=== PATIENT | female | born 1935 | race Caucasian/White ===

== ENCOUNTER → 2018-06-16 | Outpatient (CLI) | payer OTHER, MEDICARE ==
[~2018-06-16] MED LIST: ADVIL100 M2 PO; CALCIUM OYSTER500 MG PO; FISH OIL 1,0001 EAC5 PO; GLUCOSAMINE &1 EACH PO; MULTIVITAMINS PO; SYNTHROID125 MCG PO
== END ==
LOC: RAD 15:12
DX: Z12.31 Encounter for screening mammogram for malignant neoplasm of breast (principal)

== ENCOUNTER 2019-10-31 12:47 | Inpatient (IN) | payer OTHER, MEDICARE ==
[~2019-10-31] VITALS: Ht 162.6 cm; Wt 88.5 kg
--- NOTE | ~2019-10-31 | H ---
[facility] [place] [address] HISTORY AND PHYSICAL Name: GURPREET AMAYA Room #: 456-P [facility] M.R.#: [id number] Admission: 10/31/19 Attend Phys: Toribio Hazel MD Discharge: Date of : 37 Report #: [id number] THIS REPORT FOR: cc: Amandeep Gil MD, Rene P. MD Chu, Peter Y. MD ~ CC: Toribio Gil DATE OF SERVICE: 10/31/2019 REASON FOR ADMISSION: Obstructive jaundice. HISTORY OF PRESENT ILLNESS: I received a call from Dr. Gil that the patient was being sent to Radiology for evaluation of possible gallbladder disease. The patient has been complaining of being yellow for less than a week. She has mild abdominal discomfort. The patient's ultrasound showed dilated ductal system and also distended gallbladder. Pancreas was not visualized very well on ultrasound. The patient had a CT scan performed and the CT does show a dilated ductal system including pancreatic duct and irregularity in the head of the pancreas suggestion of a mass effect. The patient did have a history of a complicated appendicitis in 07/2018. A hypodense area was seen in the pancreas in several CTs were done including one in February, which showed stability. The radiologist was certain that this was benign, did not recommend any further imaging. The patient now presents with picture of obstructive jaundice and abnormal appearance to the head of the pancreas. The patient is being admitted for treatment of jaundice. ERCP is requested from GI and probable stent, hopefully that can be accomplished. PAST MEDICAL HISTORY: She has a history of hypothyroid, thyroid cancer, appendicitis, cataract, neuropathy. PAST SURGICAL HISTORY: Cataract surgery, carpal tunnel surgery, appendectomy complicated with an abscess. SOCIAL HISTORY: Retired nurse. She does not smoke or drink. FAMILY HISTORY: Significant family history of strokes and cerebral aneurysms. Her dad lived to . Not really very many cancer in the family. REVIEW OF SYSTEMS: Minimal abdominal discomfort. No nausea or vomiting. No shortness of breath, chest pain, or palpitation. PHYSICAL EXAMINATION: GENERAL: The patient is a very pleasant 84-year-old. She does not appear to be in acute distress. The patient is overtly jaundiced. [address] [address] HISTORY AND PHYSICAL Name: GURPREET AMAYA Room #: 456-P [facility] M..#: [id number] Admission: 10/31/19 Attend Phys: Toribio Hazel MD Discharge: Date of : 37 Report #: [id number] HEENT: Pupils are reactive. NECK: Soft and supple, no masses. LUNGS: Clear. HEART: Regular rate and rhythm. No murmur or gallop. ABDOMEN: She is soft and minimal tenderness in the right upper quadrant. No mass palpated. No ascites. EXTREMITIES: No cyanosis, clubbing or edema. LABORATORY DATA: The patient does have markedly elevated bilirubin of 9. AST is 410, ALT is 1064, alkaline phosphatase 374. Her lipase is elevated at 1609. Amylase is also 194. Protein and albumin is normal. Normal white count, normal PT/PTT. Hemoglobin is 12.8. Pending CEA and CA 19-9. IMPRESSION: The patient is an 84-year-old who is very pleasant. She did have an abnormal pancreas with a hypodense area, this was identified last year. Serial CT shows stability. The radiologist on the last CT did not recommend any further followup. Unfortunately, this may be the source of her obstructive jaundice. There is an irregularity in the pancreatic head. The patient has dilated biliary system, obstructed biliary system. The patient will need to be temporized with endoscopic retrograde cholangiopancreatography and stent. This will prevent infection from sitting in. I did discuss with her that she may need to go to [facility] for EUS biopsy. If does hand turner to be pancreatic cancer, I recommend Dr. Hugh Argueta for evaluation. The patient may need preoperative chemotherapy and a Whipple procedure. Hopefully, there was no liver mass identified currently. Hopefully, her tumor is localized and can be resected. The patient understands all this. She is to work in the OR and has assisted on Whipple's in the past. By: [id number] Toribio Hazel MD /nt
[2019-10-31 12:47] VITALS: BP 135/63
[~2019-10-31 12:47] MED LIST changes: -LEVOXYL112 MCG PO
[2019-10-31 14:12] LABS: ABSOLUTE NEUTROPHILS 2.8 thou/uL (1.4-8.2); BASOPHILS 0.8 % (0.0-2.0); EOSINOPHILS 1.8 % (0.0-3.0); HEMATOCRIT 38.1 % (37.0-47.0); HEMOGLOBIN 12.8 gm/dL (12.0-15.0); LYMPHOCYTES 28.9 % (24.0-44.0); MCH 30.1 pg (26.0-34.0); MCHC 33.5 g/dL (28.0-37.0); MCV 89.9 fL (80.0-100.0); MONOCYTES 7.4 % (1.0-8.0); PLATELET COUNT 271 thou/uL (150-400); POLYS 61.1 % (36.0-66.0); RBC 4.24 mil/uL (4.20-5.00); RDW 14.5 % (10.5-14.5); WBC 4.7 thou/uL (4.0-11.0)
--- NOTE | 2019-10-31 14:23 | EKG ---
[facility] [place] [address] ELECTROCARDIOGRAM REPORT Name: GURPREET AMAYA Room #: 170-3 ADM IN M.R.#: [id number] Admission: 10/31/19 Attend Phys: Toribio Hazel MD Discharge: Date of : 37 Report #: [id number] THIS REPORT FOR: cc: Amandeep Gil MD, Rene P. MD Santiago, Patrick MD [facility] ~ THIS REPORT FOR: //name// [facility] ED Test Date: 2019-10-31 Test Time: 13:33:36 Pat Name: GURPREET AMAYA Department: Room: 170 Gender: F Management Accountant: LUL : 1935 Requested By: Liam Wood Order Number: [id number] MD: Kayode Ward Measurements Intervals [place] Rate: 69 P: 59 NE: 165 QRS: 41 QRSD: 82 T: 56 QT: 399 QTc: 428 Interpretive Statements Sinus rhythm Baseline wander in lead(s) II Compared to ECG 03/23/2008 15:45:00 No significant changes Electronically Signed On 10-31-2019 14:23:24 CDT by Kayode Ward [email or web address] <ELECTRONICALLY SIGNED> By: Kayode Ward MD, FAC 10/31/19 1423 1333 1333 Kayode Ward MD, [facility] /EPI
[2019-10-31 14:28] LABS: PROTIME 10.7 Seconds (9.3-11.4)
[2019-10-31 14:37] VITALS: BP 135/63
--- NOTE | 2019-10-31 14:46 | NUR ---
attempted to call report, RN ADVISED SHE WILL CB IN A FEW MINS
[2019-10-31] MEDS ORDERED: LEVOXYL112 MCG PO (16:35)
[2019-10-31 16:53] LABS: ALBUMIN 3.6 g/dL (3.4-5.0); CALCIUM 8.9 mg/dL (8.5-10.1); CREATININE 0.6 mg/dL (0.6-1.0); POTASSIUM 3.8 mmol/L (3.5-5.1); TOTAL PROTEIN 7.8 g/dL (6.4-8.2)
[2019-10-31 19:50] VITALS: BP 123/69
--- NOTE | 2019-10-31 20:12 | NUR ---
Assumed pt care this a vs stable, jaundice is noted. Up ad mariusz and very pleasant, a & o x 4. Seen by Dr. Hazel, to be NPO midnight tonight for a procedure tomorrow. POC followed with ni signs or verbalizations of distress. Diet and medication are well tolerated no N & V noted, very minimal pain as per the pt and did not want any pain meds. Endorsed to the night nurse
[2019-11-01 07:37] VITALS: BP 116/56
--- NOTE | 2019-11-01 07:57 | NUR ---
Assumed pt care at 1900. A/OX4,VSS. Up ad mariusz in room no problems. C/o a headache medicated with APAP/[place] with some relief reported;pt reported she's a history of migraines as well as possible not eating for 24hrs;snacks offered at HS. Pt's skin jaundiced,denies N/V just belching. Pt has been NPO since midnight for ERCP. IVF/ABTs infusing via RAC IV w/o problems. Encouraged to call for help as needed.
--- NOTE | 2019-11-01 10:28 | NUR ---
Received awake on bed. On nothing per [place]- pt informed and aware; mouth swabs offered but pt refused. A+Ox4. On MS, not on telemetry; no complains of chest pain, crushing sensation and heaviness. On room air, no shortness of breath noted. Continent of bowel and bladder- able to go to the toilet independently. Up ad mariusz. With NS at 80cc/hr, infusing well at R AC. Scheduled for ERCP today at noon, consent signed; covid result: negative- pt informed. Complained of headache this AM- prn medication given as prescribed. Visited by her this AM- update given. No nausea, no vomiting and no abdominal pain noted. Skin jaundiced. To continue monitoring patient.
[2019-11-01 14:30] VITALS: BP 145/67
[2019-11-01 15:10] VITALS: BP 151/62
--- NOTE | 2019-11-01 16:04 | NUR ---
PT ADMITTED RELATED TO RUQ PAIN. CM REVIEWED CHART AND SPOKE WITH CARE TEAM. CM CALLED ADN SPOKE WITH PT'S SPOUSE IN THE ROOM THIS AM. HE INDICATED THEY RESIDE IN A HOUSE AND THAT THEY HAD BEEN SELF SUFFICIENT PRIOR TO ADMISSION. HE INDICATED THEY DIDN'T ANTICIPATE ANY NEEDS UPON DISCHARGE. PT WAS MADE INPATIENT TODAY. PT HAD ERCP DONE THIS AFTERNOON. CM TO FOLLOW INDICATED WITH DC PLANNING.
[2019-11-01 20:04] VITALS: BP 115/66
--- NOTE | 2019-11-02 03:00 | NUR ---
Assumed pt care at 1900. A/OX4,VSS. Up ad mariusz w/o any problems voiced. Denies pain on assessment. No N/V. Pt's chest,face still jaundiced. Lower lip swollen s/p ERCP and some redness noted on cheeks pt's sensitive to tape no itching reported. IVF infusing via RAC w/o any problems. Enouraged pt to call as needed. Resting quietly at this time,will continue to monitor pt.
[2019-11-02 05:48] LABS: HEMATOCRIT 34.4 % (37.0-47.0); HEMOGLOBIN 11.4 gm/dL (12.0-15.0); MCH 30.3 pg (26.0-34.0); MCHC 33.1 g/dL (28.0-37.0); MCV 91.5 fL (80.0-100.0); RBC 3.76 mil/uL (4.20-5.00); RDW 14.9 % (10.5-14.5)
[2019-11-02 06:10] LABS: ALBUMIN 2.7 g/dL (3.4-5.0); DIRECT BILIRUBIN 2.3 mg/dL (<0.1-0.2); TOTAL BILIRUBIN 3.2 mg/dL (0.2-1.0); TOTAL PROTEIN 6.2 g/dL (6.4-8.2)
[2019-11-02 08:29] VITALS: BP 132/86; BP 140/54
--- NOTE | 2019-11-02 08:45 | P ---
[facility] [place] [address] PROCEDURE REPORT Name: GURPREET AMAYA Room #: 456-P ADM IN M.R.#: [id number] Admission: 10/31/19 Attend Phys: Toribio Hazel MD Discharge: Date of : 37 Report #: [id number] THIS REPORT FOR: cc: Amandeep Gil MD, Rene P. MD McElhinney, Christian C. MD ~ CC: Toribio Gil MD DATE OF SERVICE: 11/01/2019 PROCEDURE PERFORMED: ERCP with sphincterotomy and stent placement. HISTORY OF PRESENT ILLNESS: The patient is an 84-year-old female with a history of painless jaundice, weight loss of approximately 10 pounds over the last month. Denies any fevers or chills. She underwent a CT scan of the abdomen and pelvis that is showing marked enlargement of her intrahepatic and extrahepatic bile ducts, also enlargement of the pancreatic duct. A small mass at the head of the pancreas, measuring 12 mm was noted. No evidence of retroperitoneal adenopathy was noted. No evidence of abscess or free air. Her bilirubin yesterday was 9.0, AST 14, ALT 1064, alkaline phosphatase 372, lipase 1600. CA 19-9, CEA levels are pending at this time. Her white blood cell count is 4.7, hemoglobin 12.8. The patient was started on IV Zosyn. Plan is for ERCP. DESCRIPTION OF PROCEDURE: The risks and benefits of the procedure were explained to the patient, those risks including but not limited to bleeding, perforation, the risk of sedation as well as the potential for the post-ERCP pancreatitis. She understood these risks and gave informed consent. The procedure was performed in the Interventional Radiology suite under general anesthesia. Again, the patient is already on IV Zosyn at this time. She was given 50 mg indomethacin rectal suppository prior to the procedure. Next, using a standard Olympus side-viewing ERCP scope, the scope was placed in the patient's mouth and advanced under direct vision through the esophagus, stomach and into the second portion of the duodenum, at which point, the major papilla was identified and normal in appearance. No evidence of bile drainage was noted. Next, using a [email or web address] 0.025 sphincterotome catheter, the pancreatic duct initially was cannulated and was dilated significantly. Next, I was able to cannulate the common bile duct and a cholangiogram was obtained. Significant dilation of the entire common bile duct down to the very distal portion, at which point there was a very thin filling, consistent with a tight stricture. The bile duct was dilated approximately 2 cm above the stricture. I was unable to pass a wire through the strictured area. The strictured area appears to be approximately 2 cm in length. Next, a sphincterotomy was performed without difficulty. Next, a 7-Kazakh x 7 cm straight biliary stent was placed without [address] [address] PROCEDURE REPORT Name: GURPREET AMAYA Room #: 456-P [facility] IN .R.#: [id number] Admission: 10/31/19 Attend Phys: Toribio Hazel MD Discharge: Date of : 37 Report #: [id number]. Good bile flow was noted after stent placement. At this point, the wire was withdrawn. The scope was withdrawn and the procedure terminated. The patient tolerated the procedure well. 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 Able to perform sphincterotomy and stent placement with good bile drainage noted today after stent was placed. RECOMMENDATIONS: 1. Observe the patient post-procedure. 2. Await further lab testing. 3. Would recommend an endoscopic ultrasound as an outpatient in the near future for further evaluation and possible biopsies at that time. Thank you for allowing me to participate in her care. <ELECTRONICALLY SIGNED> By: Fawad Chaidez MD 11/02/19 0845 1337 [id number] Fawad Chaidez MD /nt
--- NOTE | 2019-11-02 10:54 | NUR ---
Received awake on bed. Due medications given as prescribed. On room air. Vital signs stable. A+Ox4. On MS, not on telemetry; no complain of chest pain, crushing sensation and heaviness. On regular diet- tolerating well; no nausea, no vomiting and no abdominal pain. Continent of bowel and bladder, able to go to the toilet independently, up ad mariusz. With Ns at 80cc/hr, infusing well at R AC, on IV antibiotics. No complains of pain made during assessment. Pt less jaundiced today. To continue monitoring patient.
[2019-11-02 15:22] VITALS: BP 132/86
--- NOTE | 2019-11-02 16:05 | NUR ---
CARE TEAM INDICATED THAT PT IS MEDICALLY STABLE TO DISCHARGE HOME THIS DAY. PT IS TO DC HOME TODAY TO SELF CARE. PT'S SPOUSE TO TRANSPORT. NO OTHER CM INTERVENTION INDICATED. CASE CLOSED.
== END 2019-11-02 16:45 | disposition home or self-care (01) | DRG 445 ==
LOC: ER 12:47 → 4W 14:21 → EROBS 14:21 → 4W 14:21
PROVIDERS: Nurse Practitioner; Specialist; ADMIT Surgery; ATTEND Surgery
PROC: 0F798DZ Dilation of Common Bile Duct with Intraluminal Device, Via Natural or Artificial Opening Endoscopic (ICD-10-PCS; principal; 2019-11-01)
DX: K83.1 Obstruction of bile duct (principal); E44.1 Mild protein-calorie malnutrition; K81.9 Cholecystitis, unspecified; R19.00 Intra-abdominal and pelvic swelling, mass and lump, unspecified site; M19.90 Unspecified osteoarthritis, unspecified site; G43.909 Migraine, unspecified, not intractable, without status migrainosus; Z20.828 Contact with and (suspected) exposure to other viral communicable diseases; E03.9 Hypothyroidism, unspecified; F10.21 Alcohol dependence, in remission; G62.9 Polyneuropathy, unspecified; Z86.14 Personal history of Methicillin resistant Staphylococcus aureus infection; Z90.49 Acquired absence of other specified parts of digestive tract; Z88.6 Allergy status to analgesic agent; Z85.850 Personal history of malignant neoplasm of thyroid; Z98.49 Cataract extraction status, unspecified eye; Z82.3 Family history of stroke; Z79.899 Other long term (current) drug therapy
CPT/HCPCS: 10040; 62110; 62900; 70005

== ENCOUNTER → 2019-10-31 | Outpatient (CLI) | payer OTHER, MEDICARE ==
[~2019-10-31] MED LIST changes: +LEVOXYL112 MCG PO
[2019-10-31 11:24] LABS: CALCIUM 9.3 mg/dL (8.5-10.1); CREATININE 0.6 mg/dL (0.6-1.0); POTASSIUM 4.4 mmol/L (3.5-5.1)
== END ==
LOC: ULTRA 08:54
PROVIDERS: ATTEND Family Medicine
DX: R16.0 Hepatomegaly, not elsewhere classified (principal); K86.89 Other specified diseases of pancreas; R17 Unspecified jaundice; K82.8 Other specified diseases of gallbladder; I70.0 Atherosclerosis of aorta; M25.78 Osteophyte, vertebrae